=== PATIENT | female | born 1955 ===

== ENCOUNTER 2018-01-20 16:12 | Observation (INO) | payer OTHER ==
--- NOTE | 2018-01-20 16:43 | C.PDOC ---
History Of Present Illness 62 y/o female with history of HTN and High cholesterol presets to ED sent by DR. Carty for further evaluation of intermittent left sided chest pain for 8 days associated with sob today while walking daughter to school. At ED patient reports no chest pain and denies nausea, vomiting, recent travel, fever, chills, cough, leg swelling or any other complaints at this time. Time Seen by Provider: 01/20/18 16:18 Chief Complaint (Nursing): Chest Pain History Per: Patient History/Exam Limitations: no limitations Onset/Duration Of Symptoms: Days Current Symptoms Are (Timing): Still Present Past Medical History Reviewed: Historical Data, Nursing Documentation, Vital Signs Vital Signs: Last Vital Signs Temp 98.5 F 01/20/18 16:29 Pulse 81 01/20/18 16:29 Resp 11 L 01/20/18 16:29 BP 136/74 01/20/18 16:29 Pulse Ox 99 01/20/18 16:29 - Medical History PMH: CVA (2 years ago no deficits), HTN, Hypercholesterolemia Surgical History: No Surg Hx Family History: States: No Known Family Hx - Social History Hx Alcohol Use: No Hx Substance Use: No Review Of Systems Constitutional: Negative for: Fever, Chills Cardiovascular: Positive for: Chest Pain Respiratory: Positive for: Shortness of Breath. Negative for: Cough Gastrointestinal: Negative for: Nausea, Vomiting, Abdominal Pain Skin: Negative for: Rash Physical Exam - Physical Exam Appears: Non-toxic, No Acute Distress Skin: Warm, Dry, No Rash Head: Atraumatic, Normacephalic Eye(s): bilateral: Normal Inspection Oral Mucosa: Moist Neck: Supple Cardiovascular: Rhythm Regular Respiratory: Normal Breath Sounds, No Rales, No Rhonchi, No Wheezing Gastrointestinal/Abdominal: Soft, No Tenderness, No Guarding, No Rebound Extremity: Normal ROM, No Pedal Edema, Capillary Refill (<2 seconds) Neurological/Psych: Oriented x3, Normal Speech, Normal Cognition, Normal Motor, Normal Sensation ED Course And Treatment - Laboratory Results Result Diagrams: 01/20/18 17:07 01/20/18 17:07 ECG: Interpreted By Me, Viewed By Me ECG Rhythm: Sinus Rhythm Rate From EC (BPM) O2 Sat by Pulse Oximetry: 99 (RA) Pulse Ox Interpretation: Normal Medical Decision Making Medical Decision Making: Plan: ECG, CXR, Blood work, IV fluids Progress: 1818- D/w Dr. Carty states patient was sent for stress test and was not compliant, advises patient to be admitted over night. 182- Discussed with patient results and plan of admission as per Dr. Carty. Patient agrees for overnight obs. Disposition Discussed With : Bennie Carty Doctor Will See Patient In The: Office Counseled Patient/Family Regarding: Studies Performed, Diagnosis - Disposition Disposition: HOSPITALIZED Disposition Time: 18:23 Forms: [employer] (Italian) - Clinical Impression Clinical Impression: Chest pain - Scribe Statement The provider has reviewed the documentation as recorded by the Scribe Rob Navarro All medical record entries made by the Scribe were at my direction and personally dictated by me. I have reviewed the chart and agree that the record accurately reflects my personal performance of the history, physical exam, m edical decision making, and the department course for this patient. I have also personally directed, reviewed, and agree with the discharge instructions and disposition.
[2018-01-20 17:19] LABS: BASO % 0.3 % (0.0-2.0); EOS # 0.2 K/uL (0.0-0.7); EOS % 2.6 % (0.0-4.0); HEMOGLOBIN 13.6 g/dL (11.0-16.0); LYMPH # 1.6 K/uL (1.0-4.3); LYMPH % 23.8 % (20.0-40.0); MEAN CELL VOLUME 82.6 fL (81.0-99.0); MEAN CORPUSCULAR HEMOGLOBIN 27.8 pg (27.0-31.0); MEAN CORPUSCULAR HGB CONC 33.7 g/dL (33.0-37.0); MEAN PLATELET VOLUME 8.4 fL (7.2-11.7); MONO # 0.6 K/uL (0.0-0.8); MONO % 8.3 % (0.0-10.0); NEUT # 4.3 K/uL (1.8-7.0); NRBC % 0.1 % (0.0-2.0); RBC 4.89 Mil/uL (3.80-5.20); WHITE BLOOD COUNT 6.7 K/uL (4.8-10.8)
--- NOTE | 2018-01-20 17:23 | RAD ---
Date of service: 01/20/2018 PROCEDURE: CHEST RADIOGRAPH, 1 VIEW HISTORY: chest pain COMPARISON: A prior report from 01/15/2015 is noted. However for unclear reasons, the images from that two view chest x-ray are loading FINDINGS: LUNGS: Clear. PLEURA: No pneumothorax or pleural fluid seen. CARDIOVASCULAR: No aortic atherosclerotic calcification present. Top heart size. No pulmonary venous congestion OSSEOUS STRUCTURES: No significant abnormalities. VISUALIZED UPPER ABDOMEN: Normal. OTHER FINDINGS: None. IMPRESSION: No active disease appreciated.
[2018-01-20 17:58] LABS: ALB/GLOB RATIO 1.4 (1.0-2.1); ALBUMIN 4.6 g/dL (3.5-5.0); ALT/SGPT 19 U/L (9-52); AST/SGOT 23 U/L (14-36); BLOOD UREA NITROGEN 10 mg/dL (7-17); CALCIUM 9.3 mg/dl (8.6-10.4); GFR NON-AFRICAN AMERICAN > 60
[2018-01-20] MEDS ORDERED: Aspirin 325 mg EC Tablets PO STA (18:28)
[2018-01-20] MEDS ORDERED: Aspirin 325 mg EC Tablets PO ONE (18:41)
[2018-01-20 19:44] VITALS: RESP 20
[2018-01-21 04:08] LABS: CK-MB 0.62 ng/mL (0.0-3.38)
[2018-01-21 07:47] LABS: CK-MB 0.51 ng/mL (0.0-3.38)
[2018-01-21] MEDS: Enoxaparin 40 mg Syringe SC SCH (09:21)
--- NOTE | 2018-01-21 13:28 | CP.PCM.HP ---
History of Present Illness - History of Present Illness History of Present Illness: 60 y/o lady atypical chest pain. The week of admission she started to complain same pre cordial pain not on exertion, no palpitations, no diaphoresis, cough, fever. No focal deficit or weakness. no nausea, no vomiting, no seizure or sy ncope. Patient with hx of hyperlipedemia and HTN. She had an episode of TIA 2 yeas ago. At present no c/o no deficit. Will admit under observation for further evaluation. Present on Admission - Present on Admission Any Indicators Present on Admission: No Review of Systems - Constitutional Constitutional: As Per HPI - EENT Eyes: As Per HPI - Cardiovascular Cardiovascular: Chest Pain, Chest Pain at Rest - Respiratory Respiratory: As Per HPI - Gastrointestinal Gastrointestinal: As Per HPI - Integumentary Integumentary: As Per HPI - Neurological Neurological: As Per HPI - Psychiatric Psychiatric: As Per HPI - Endocrine Endocrine: As Per HPI Past Patient History - Past Medical History & Family History Past Medical History?: Yes - Past Social History Smoking Status: Never Smoked - CARDIAC Hx Hypercholesterolemia: Yes Hx Hypertension: Yes - PULMONARY Hx Respiratory Disorders: Yes (chronic sinusitis) - HEENT Hx HEENT Problems: Yes Hx Macular Degeneration: Yes - RENAL Hx Chronic Kidney Disease: No - ENDOCRINE/METABOLIC Hx Endocrine Disorders: No - HEMATOLOGICAL/ONCOLOGICAL Hx Human Immunodeficiency Virus (HIV): No - INTEGUMENTARY Hx Dermatological Problems: No - MUSCULOSKELETAL/RHEUMATOLOGICAL Hx Musculoskeletal Disorders: No Hx Falls: No - GASTROINTESTINAL Hx Gastrointestinal Disorders: No - GENITOURINARY/GYNECOLOGICAL Hx Genitourinary Disorders: No - PSYCHIATRIC Hx Substance Use: No - SURGICAL HISTORY Hx Surgeries: Yes Hx Section: Yes Hx Dilation and Curettage: Yes Other/Comment: Nasal polyps removal - ANESTHESIA Hx Anesthesia: Yes Hx Anesthesia Reactions: No Hx Malignant Hyperthermia: No Meds Allergies/Adverse Reactions: Allergies Allergy/AdvReac Type Severity Reaction Status Date / Time No Known Allergies Allergy Verified 03/30/15 08:26 Physical Exam - Constitutional Appears: Non-toxic - Head Exam Head Exam: ATRAUMATIC, NORMAL INSPECTION, NORMOCEPHALIC - Eye Exam Eye Exam: Normal appearance - ENT Exam ENT Exam: Mucous Membranes Moist - Neck Exam Neck exam: Positive for: Full Rom - Respiratory Exam Respiratory Exam: Decreased Breath Sounds - Cardiovascular Exam Cardiovascular Exam: REGULAR RHYTHM, +S1, +S2 - GI/Abdominal Exam GI & Abdominal Exam: Normal Bowel Sounds - Extremities Exam Extremities exam: Positive for: normal inspection - Neurological Exam Neurological exam: Alert, CN II-XII Intact, Normal Gait, Oriented x3, Reflexes Normal - Psychiatric Exam Psychiatric exam: Normal Affect - Skin Skin Exam: Normal Color Results - Vital Signs Recent Vital Signs: Last Vital Signs Temp 98.7 F 01/21/18 07:00 Pulse 69 01/21/18 08:36 Resp 20 01/21/18 07:00 BP 126/79 01/21/18 07:00 Pulse Ox 94 L 01/21/18 08:36 - Labs Result Diagrams: 01/20/18 17:07 01/20/18 17:07 Labs: Laboratory Results - last 24 hr 01/20/18 01/20/18 01/21/18 17:07 17:07 03:42 WBC 6.7 RBC 4.89 Hgb 13.6 Hct 40.4 MCV 82.6 MCH 27.8 MCHC 33.7 RDW 15.0 H Plt Count 246 MPV 8.4 Neut % (Auto) 65.0 Lymph % (Auto) 23.8 [place] % (Auto) 8.3 Eos % (Auto) 2.6 Baso % (Auto) 0.3 Neut # (Auto) 4.3 Lymph # (Auto) 1.6 [place] # (Auto) 0.6 Eos # (Auto) 0.2 Baso # (Auto) 0.0 Sodium 140 Potassium 3.6 Chloride 104 Carbon Dioxide 27 Anion Gap 13 BUN 10 Creatinine 0.6 L Est GFR ( Amer) > 60 Est GFR (Non-Af Amer) > 60 Random Glucose 98 Hemoglobin A1c Calcium 9.3 Total Bilirubin 1.0 AST 23 ALT 19 Alkaline Phosphatase 130 H Total Creatine Kinase 74 CK-MB (Mass) 0.62 Troponin I < 0.0120 < 0.0120 Total Protein 7.8 Albumin 4.6 Globulin 3.2 Albumin/Globulin Ratio 1.4 TSH 3rd Generation 01/21/18 01/21/18 01/21/18 06:57 06:57 06:57 WBC RBC Hgb Hct MCV MCH MCHC RDW Plt Count MPV Neut % (Auto) Lymph % (Auto) [place] % (Auto) Eos % (Auto) Baso % (Auto) Neut # (Auto) Lymph # (Auto) [place] # (Auto) Eos # (Auto) Baso # (Auto) Sodium Potassium Chloride Carbon Dioxide Anion Gap BUN Creatinine Est GFR ( Amer) Est GFR (Non-Af Amer) Random Glucose Hemoglobin A1c 6.0 Calcium Total Bilirubin AST ALT Alkaline Phosphatase Total Creatine Kinase 70 CK-MB (Mass) 0.51 Troponin I < 0.0120 Total Protein Albumin Globulin Albumin/Globulin Ratio TSH 3rd Generation 2.18 Assessment & Plan (1) Chest pain Status: Acute (2) Atypical chest pain Status: Acute (3) Hyperlipidemia Status: Chronic (4) Hypertension Status: Chronic - Assessment and Plan (Free Text) Plan: As per orders.
--- NOTE | 2018-01-21 18:33 | CP.PCM.CON ---
History of Present Illness - History of Present Illness History of Present Illness: Consultation for evaluation of chest pain HPI: 62 year old female with hx of HTN presenting with c/o chest pain sharp atypical in nature positional in nature. Sx started a few days after she started taking nsaids. Sx was associated with SOB. Review of Systems - Review of Systems Systems not reviewed;Unavailable: Acuity of Condition - Constitutional Constitutional: As Per HPI - EENT Eyes: As Per HPI Ears: As Per HPI Nose/Mouth/Throat: As Per HPI - Breasts Breasts: As Per HPI - Cardiovascular Cardiovascular: As Per HPI - Respiratory Respiratory: As Per HPI - Gastrointestinal Gastrointestinal: As Per HPI - Genitourinary Genitourinary: As Per HPI - Reproductive: Female Reproductive:Female: As Per HPI - Menstruation Menstruation: As Per HPI - Musculoskeletal Musculoskeletal: As Per HPI - Integumentary Integumentary: As Per HPI - Neurological Neurological: As Per HPI - Psychiatric Psychiatric: As Per HPI - Endocrine Endocrine: As Per HPI - Hematologic/Lymphatic Hematologic: As Per HPI Past Patient History - Past Medical History & Family History Past Medical History?: Yes - Past Social History Smoking Status: Never Smoked - CARDIAC Hx Hypercholesterolemia: Yes Hx Hypertension: Yes - PULMONARY Hx Respiratory Disorders: Yes (chronic sinusitis) - HEENT Hx HEENT Problems: Yes Hx Macular Degeneration: Yes - RENAL Hx Chronic Kidney Disease: No - ENDOCRINE/METABOLIC Hx Endocrine Disorders: No - HEMATOLOGICAL/ONCOLOGICAL Hx Human Immunodeficiency Virus (HIV): No - INTEGUMENTARY Hx Dermatological Problems: No - MUSCULOSKELETAL/RHEUMATOLOGICAL Hx Musculoskeletal Disorders: No Hx Falls: No - GASTROINTESTINAL Hx Gastrointestinal Disorders: No - GENITOURINARY/GYNECOLOGICAL Hx Genitourinary Disorders: No - PSYCHIATRIC Hx Substance Use: No - SURGICAL HISTORY Hx Surgeries: Yes Hx Section: Yes Hx Dilation and Curettage: Yes Other/Comment: Nasal polyps removal - ANESTHESIA Hx Anesthesia: Yes Hx Anesthesia Reactions: No Hx Malignant Hyperthermia: No Meds Allergies/Adverse Reactions: Allergies Allergy/AdvReac Type Severity Reaction Status Date / Time No Known Allergies Allergy Verified 03/30/15 08:26 - Medications Medications: Current Medications Amlodipine Besylate (Norvasc) 5 mg PO HS [facility] Last Admin: 01/21/18 09:19 Dose: Not Given Aspirin (Ecotrin) 81 mg PO DAILY [facility] Last Admin: 01/21/18 09:22 Dose: 81 mg Enoxaparin Sodium (Lovenox) 40 mg SC DAILY [facility] Last Admin: 01/21/18 09:21 Dose: 40 mg Rosuvastatin Calcium (Crestor) 10 mg PO [facility] Physical Exam - Constitutional Appears: Well - Head Exam Head Exam: ATRAUMATIC, NORMAL INSPECTION, NORMOCEPHALIC - Eye Exam Eye Exam: EOMI, Normal appearance, PERRL Pupil Exam: NORMAL ACCOMODATION, PERRL - ENT Exam ENT Exam: Mucous Membranes Moist, Normal Exam - Neck Exam Neck exam: Positive for: Normal Inspection - Respiratory Exam Respiratory Exam: Clear to Auscultation Bilateral, NORMAL BREATHING PATTERN - Cardiovascular Exam Cardiovascular Exam: REGULAR RHYTHM - GI/Abdominal Exam GI & Abdominal Exam: Normal Bowel Sounds, Soft. absent: Tenderness - Extremities Exam Extremities exam: Positive for: normal inspection - Back Exam Back exam: NORMAL INSPECTION - Neurological Exam Neurological exam: Alert, CN II-XII Intact, Normal Gait, Oriented x3, Reflexes Normal - Psychiatric Exam Psychiatric exam: Normal Affect, Normal Mood - Skin Skin Exam: Dry, Intact, Normal Color, Warm Results - Vital Signs Recent Vital Signs: Last Vital Signs Temp 98.2 F 01/21/18 15:00 Pulse 80 01/21/18 15:00 Resp 20 01/21/18 15:00 BP 134/78 01/21/18 15:00 Pulse Ox 98 01/21/18 15:00 - Labs Result Diagrams: 01/20/18 17:07 01/20/18 17:07 Labs: Laboratory Results - last 24 hr 01/21/18 01/21/18 01/21/18 03:42 06:57 06:57 Hemoglobin A1c 6.0 Total Creatine Kinase 74 70 CK-MB (Mass) 0.62 0.51 Troponin I < 0.0120 < 0.0120 TSH 3rd Generation 01/21/18 06:57 Hemoglobin A1c Total Creatine Kinase CK-MB (Mass) Troponin I TSH 3rd Generation 2.18 Assessment & Plan (1) Atypical chest pain Assessment and Plan: ACS ruled out with TnI x 3 can be discharged home for outpt stress test echo reviewed Status: Acute (2) Hyperlipidemia Assessment and Plan: statins Status: Chronic (3) Hypertension Assessment and Plan: cont norvasc Status: Chronic
[2018-01-21 18:53] LABS: SQUAMOUS EPITHIAL 1 /hpf (0-5); URINE BACTERIA OCC (<OCC); URINE BILIRUBIN NEGATIVE (NEGATIVE); URINE BLOOD NEGATIVE (NEGATIVE); URINE CLARITY Clear (Clear); URINE COLOR Yellow (YELLOW); URINE GLUCOSE (UA) NORMAL (Normal); URINE LEUKOCYTE ESTERASE 1+ Leu/uL (Negative); URINE PROTEIN NEGATIVE (NEGATIVE); URINE UROBILINOGEN NORMAL mg/dL (0.2-1.0)
[2018-01-21 19:00] LABS: INR 1.1; PARTIAL THROMBOPLASTIN TIME 42 SECONDS (21-34); PROTHROMBIN TIME 12.2 SECONDS (9.7-12.2)
--- NOTE | 2018-01-21 19:08 | CARD ---
APPROVED REPORT Date of service: 01/21/2018 EXAM: Two-dimensional and M-mode echocardiogram with Doppler and color Doppler. Other Information Quality : GoodRhythm : RISK FACTORS Hypertension Hyperlipidemia 2D DIMENSIONS LVEF (%)71.0 (>50%)LVEF (Guerra's)70 % IVC0.00 cm M-Mode DIMENSIONS RVDd1.20 (2.1-3.2cm)Left Atrium (MM)3.29 (2.5-4.0cm) IVSd0.72 (0.7-1.1cm)Aortic Root3.45 (2.2-3.7cm) LVDd4.43 (4.0-5.6cm)Aortic Cusp Exc.2.02 (1.5-2.0cm) PWd0.88 (0.7-1.1cm)FS (%) 44 % LVDs2.47 (2.0-3.8cm)LVEF (%)76 (>50%) Mitral Valve MV E Hhdprpxr61.2cm/sMV A Xoxwgoth46.3cm/sE/A ratio0.7 TDI Lateral E' Peak V9.26cm/sMedial E' Peak V5.06cm/sE/Lateral E'6.8 E/Medial E'12.5 Tricuspid Valve TR Peak [id number]/sTR Peak Gr.[id number] <Conclusion> poor window. normal size la,lv & ra rv. normal lv wall motion,thickness & systolic function with lvef of 65-70%. grossly normal looking aortic,mitral,tv & pv. lv diastolic dysfunction grade one. mild tr with upper normal pulmonary systolic pressures of 34 mm of hg. no pericardial effusion. normal size aortic root & ivc.
[2018-01-21 19:15] LABS: D DIMER < 200 ng/mlDDU (0-243)
--- NOTE | 2018-01-21 19:58 | CARD ---
APPROVED REPORT Date of service: 01/20/2018 EKG Measurement Heart [id number] <Conclusion> Normal sinus rhythm Normal ECG
[2018-01-22] MEDS: Enoxaparin 40 mg Syringe SC SCH (09:09)
[2018-01-22 09:10] VITALS: BP 137/78; TEMP 98.3; O2SAT 97
--- NOTE | 2018-01-22 11:57 | CP.PCM.PN ---
Subjective - Date & Time of Evaluation Date of Evaluation: 01/22/18 Time of Evaluation: 11:57 - Subjective Subjective: Comfortable. Will DC home will follow as OP Objective - Vital Signs/Intake and Output Vital Signs (last 24 hours): Temp Pulse Resp BP Pulse Ox 98.3 F 70 20 137/78 97 01/22/18 09:09 01/22/18 09:09 01/22/18 09:09 01/22/18 09:09 01/22/18 09:09 Intake and Output: 01/21/18 01/22/18 23:59 11:59 Intake Total 120 Balance 120 - Medications Medications: Current Medications Amlodipine Besylate (Norvasc) 5 mg PO HS [facility] Last Admin: 01/21/18 22:13 Dose: 5 mg Aspirin (Ecotrin) 81 mg PO DAILY [facility] Last Admin: 01/22/18 09:09 Dose: 81 mg Enoxaparin Sodium (Lovenox) 40 mg SC DAILY [facility] Last Admin: 01/22/18 09:09 Dose: 40 mg Rosuvastatin Calcium (Crestor) 10 mg PO HS [facility] Last Admin: 01/21/18 22:13 Dose: 10 mg - Labs Labs: 01/20/18 17:07 01/20/18 17:07 PT 12.2 SECONDS (9.7-12.2) 01/21/18 18:34 INR 1.1 01/21/18 18:34 APTT 42 SECONDS (21-34) H 01/21/18 18:34 - Constitutional Appears: Well, Non-toxic - Head Exam Head Exam: ATRAUMATIC, NORMAL INSPECTION, NORMOCEPHALIC - Eye Exam Eye Exam: Normal appearance - ENT Exam ENT Exam: Mucous Membranes Moist - Neck Exam Neck Exam: Full ROM - Respiratory Exam Respiratory Exam: Clear to Ausculation Bilateral - Cardiovascular Exam Cardiovascular Exam: REGULAR RHYTHM, +S1, +S2 - GI/Abdominal Exam GI & Abdominal Exam: Soft, Normal Bowel Sounds - Extremities Exam Extremities Exam: Normal Inspection - Neurological Exam Neurological Exam: Alert, Awake, CN II-XII Intact, Normal Gait, Oriented x3 - Psychiatric Exam Psychiatric exam: Normal Affect - Skin Skin Exam: Normal Color Assessment and Plan (1) Chest pain Status: Acute (2) Atypical chest pain Status: Acute (3) Hyperlipidemia Status: Chronic (4) Hypertension Status: Chronic - Assessment and Plan (Free Text) Plan: F/U as OP
[2018-01-22 13:03] VITALS: PULSE 75
--- NOTE | 2018-01-24 23:13 | CARD ---
APPROVED REPORT Date of service: 01/22/2018 EKG Measurement Heart [id number] <Conclusion> Normal sinus rhythm Normal ECG
== END 2018-01-22 15:30 | disposition home or self-care (01) ==
LOC: C.ER 16:12 → C.6T 18:25
PROVIDERS: ADMIT Internal Medicine; ATTEND Internal Medicine
DX: R07.9 Chest pain, unspecified (principal); I10 Essential (primary) hypertension; E78.5 Hyperlipidemia, unspecified; E78.00 Pure hypercholesterolemia, unspecified; J32.9 Chronic sinusitis, unspecified; H35.30 Unspecified macular degeneration; Z86.73 Personal history of transient ischemic attack (TIA), and cerebral infarction without residual deficits
CPT/HCPCS: 36415; 71045; 80053; 81001; 83036; 84443; 84484; 85025; 85378; 85610; 85730; 93005; 93306; 99285; G0378; J1650

== ENCOUNTER 2018-04-23 07:03 | Outpatient (CLI) | payer OTHER | END 2018-04-23 07:04 | disposition home or self-care (01) | LOC: C.MAMMO 07:03 | DX: Z12.31 Encounter for screening mammogram for malignant neoplasm of breast (principal) ==